=== PATIENT | male | born 1980 | race Caucasian/White ===

== ENCOUNTER 2016-04-22 15:08 | Emergency (ER) | payer OTHER ==
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
[2016-04-22 16:50] VITALS: BP 109/64; PULSE 54; RESP 15; TEMP 98.8; O2SAT 95
== END 2016-04-22 16:50 | disposition home or self-care (01) ==
PROC: 0CQ1XZZ Repair Lower Lip, External Approach (ICD-10-PCS; principal; 2016-04-22)
DX: S01.511A Laceration without foreign body of lip, initial encounter (principal); V18.0XXA Pedal cycle driver injured in noncollision transport accident in nontraffic accident, initial encounter; Y93.55 Activity, bike riding